=== PATIENT | male | born 1990 | race Caucasian/White ===

== ENCOUNTER 2017-08-01 16:31 | Emergency (ER) | payer OTHER ==
[~2017-08-01] VITALS: Ht 175.3 cm; Wt 70.3 kg
[2017-08-01 16:42] VITALS: BP 141/84; Ht 175.3 cm; Wt 70.3 kg
== END 2017-08-01 17:13 | disposition other institution (70) ==
LOC: ED 16:31
DX: L03.113 Cellulitis of right upper limb (principal)